=== PATIENT | male | born 1960 | race Caucasian/White ===

== ENCOUNTER → 2019-06-25 | Outpatient (CLI) | payer BC ==
--- NOTE | 2019-06-25 14:19 | Diagnostic Imaging Report ---
EXAMINATION: MRI of the lumbar spine without contrast HISTORY: Low back pain, lumbar radiculopathy, RA. Right foot pain. COMPARISON: None. TECHNIQUE: Sagittal T1, T2, STIR; axial T2 and proton density. FINDINGS: It is assumed that there are 5 lumbar vertebrae. Curvature/Alignment: Normal lordosis. Vertebrae: No evidence of recent fracture, infection, or neoplasm. Conus: Normal, terminating at T12-L1 Cauda equina: Unremarkable. Lower thoracic: Unremarkable. Paraspinal soft tissues: T2 hyperintense possible cyst in the left inferior kidney, comparison to prior studies if available is recommended. Degenerative changes: L1-L2: Unremarkable. L2-L3: Unremarkable. L3-L4: Minimal symmetric disc bulge without canal or foraminal stenoses. L4-L5: Minimal symmetric disc bulge and facet arthrosis without stenoses. L5-S1: Minimal symmetric disc bulge without stenosis. IMPRESSION: Minimal degenerative changes from L3-L4 to L5-S1 without disc herniations, spinal canal or foraminal stenosis. No evidence of nerve root compression. Signed by: Dr. Rylie Alvarez M.D. on 06/25/2019 2:15 PM
--- NOTE | 2019-06-25 14:27 | Diagnostic Imaging Report ---
EXAMINATION: MRI of the cervical spine without contrast HISTORY: Neck pain, cervical radiculopathy, RA. COMPARISON: None available TECHNIQUE: Sagittal T1, T2, STIR; axial T2, gradient echo. FINDINGS: Curvature: Normal lordosis. Vertebrae: No evidence of neoplasm, infection, or fracture. Foramen magnum: No mass, Chiari malformation, or basilar invagination. Spinal Cord: Normal size and signal intensity. Soft Tissues: Unremarkable. Degenerative changes: C1-C2: Unremarkable. C2-C3: Mild facet arthrosis without stenosis. C3-C4: Mild disc bulge, bilateral facet arthrosis. Moderate left foraminal stenosis. C4-C5: Asymmetric left disc osteophyte, prominent facet arthrosis minimally left. Moderately severe left foraminal stenosis. C5-C6: Small disc osteophyte formation, bilateral uncovertebral and facet arthrosis. Mild right and moderate left foraminal stenosis. C6-C7: Small disc osteophyte formation, bilateral facet arthrosis. Mild left foraminal stenosis. C7-T1: Facet arthroses without stenoses IMPRESSION: 1. Moderate to severe degenerative foraminal stenosis on the left at C3-C4, C4-C5 and C5-C6 as detailed above. 2. Mild multilevel spondylosis without significant canal stenosis. Signed by: Dr. Rylie Alvarez M.D. on 06/25/2019 2:24 PM
== END ==
LOC: MRI 11:11
PROVIDERS: ATTEND Physical Medicine & Rehabilitation Pain Medicine
DX: M54.16 Radiculopathy, lumbar region (principal); M54.12 Radiculopathy, cervical region
CPT/HCPCS: 72141; 72148

== ENCOUNTER → 2019-08-11 | Day surgery (SDC) | payer BC ==
[~2019-08-11] MED LIST: ALLOPURINOL100 MG PO; ALPRAZOLAM0.25 MG PO; ASPIR 8181 MG PO; AZELASTINE137 MCG/0.; FAMOTIDINE20 MG PO; FENTANYL CITRATE/PF 100MCG/2 ML INJ ONE; FLUTICASONE PRO16 GM; FLUVASTATIN SOD40 MG PO; IOPAMIDOL 200 MG/ML 20 ML VIAL IT ONE; IRBESARTAN-HCT1 EAC1 PO; LIDOCAINE HCL 1% 30ML-PF VIAL ONE; LIDOCAINE HCL 2% LOCAL INJ 5 ML SDV VIAL INJ ONE; METHOTREXATE2.5 MG PO; MIDAZOLAM HCL 2 MG/2 ML VIAL ONE; MITIGARE PO; PREDNISONE10 MG PO; PROPOFOL IV EMULSION 10 MG/ML 20 ML VIAL ONE; SULFASALAZINE500 MG PO; TESTOSTERO200 MG/1 M INJ; TRIAMCINOLONE ACET 40 MG/ML VIAL ONE; ULTRAM 50MG50 MG PO; VIT D2 PO; XELJANZ PO; ZOLPIDEM TARTRA10 MG PO
--- OUTSIDE RECORDS SUMMARY | 2019-08-11 06:44 | XMS REPORT | Encounter Summary ---
Author Organization Unknown Address [address] [place] [address] Phone [phone] Care Team Providers Care Blog Writer Name Role Phone Deniz Ordonez MD (Devin) 3 [phone] Du Ervin MD 82 [phone] Kana Reddy MD 105 [phone] Yaneth Patrick MD 121 [phone] Reason for Visit Essential hypertension; Insomnia; Pure hypercholesterolemia Instructions 1. Pure hypercholesterolemia high cholesterol: care instructions fluvastatin 40 mg capsule lipid panel, serum CMP, serum or plasma 2. Insomnia zolpidem ER 12.5 mg tablet,extended release,multiphase 3. Essential hypertension irbesartan 300 mg-hydrochlorothiazide 12.5 mg tablet 4. Allergic rhinitis azelastine 137 mcg (0.1 %) nasal spray aerosol fluticasone propionate 50 mcg/actuation nasal spray,suspension 5. Anxiety alprazolam 0.25 mg tablet 6. Polyarthropathy tramadol 50 mg tablet 7. Body mass index 30+ - obesity body mass index: care instructions learning about healthy weight 8. Non-alcoholic fatty liver Discussion Note: None recorded. Plan of Care Reminders Provider Appointments Est Patient on or around 07/08/2019 Deniz Ordonez MD Lab Lipid Panel, Serum 07/01/2019 [facility] CMP, Serum or Plasma 07/01/2019 [facility] Referral None recorded. Procedures None recorded. Surgeries None recorded. Imaging None recorded. Medications Name Start Date alprazolam 0.25 mg tablet TAKE ONE TABLET BY MOUTH DAILY NEEDED aspirin 81 mg tablet,delayed release Take 1 tablet every day by oral route. azelastine 137 mcg (0.1 %) nasal spray aerosol Gray 2 sprays twice a day by intranasal route. famotidine 20 mg tablet Take 1 tablet twice a day by oral route. fluticasone propionate 50 mcg/actuation nasal spray,suspension USE ONE SPRAY EACH NOSTRIL ONE TIME DAILY fluvastatin 40 mg capsule TAKE ONE CAPSULE BY MOUTH ONE TIME DAILY irbesartan 300 mg-hydrochlorothiazide 12.5 mg tablet Take 1 tablet every day by oral route. methotrexate sodium 2.5 mg tablet Take 4 tablets every day by oral route for 84 days. omeprazole 20 mg capsule,delayed release Take 1 capsule every day by oral route. prednisone 10 mg tablet Take 1 tablet every day by oral route as needed for 50 days. sulfasalazine 500 mg tablet,delayed release Take 1 tablet every day by oral route for 90 days. testosterone cypionate 200 mg/mL intramuscular oil INJECT 1 ML IINTRAMUSCULARLY EVERY 3 WEEKS tramadol 50 mg tablet Take 1 tablet every 6-8 hours by oral route as needed. Vitamin D2 50,000 unit capsule Take 1 capsule every week by oral route for 84 days. Xeljanz XR 11 mg tablet,extended release Take 1 tablet every day by oral route for 30 days. zolpidem ER 12.5 mg tablet,extended release,multiphase TAKE ONE TABLET BY MOUTH DAILY NEEDED Medications Administered None recorded. Vitals Height Weight BMI Blood Pressure 5 ft 10 in 231.4 lbs 33.2 kg/m2 130/92 mm[Hg] Lab Results None recorded. 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 History Vitamin D Deficiency Active 10/28/2014 History Pure Hypercholesterolemia Active 10/28/2014 History Essential Hypertension Active 10/28/2014 History Gastroesophageal Reflux Disease Active 10/28/2014 History Diaphragmatic Hernia Active 10/28/2014 History Diverticular Disease of Colon Active 10/28/2014 History Polyarthropathy Active 11/14/2014 History Disorder of Bone and Articular Cartilage Active 02/18/2015 History Non-alcoholic Fatty Liver Active 05/22/2015 History Male Hypogonadism Active 06/12/2018 Anxiety Active 06/12/2018 Insomnia Active 06/12/2018 Procedures Date Name Performed by 11/10/2011 Colonoscopy Information not available 11/10/1979 ENT Surgery (Ear, Nose, Throat) Information not available Vasectomy Information not available Tonsillectomy Information not available Vaccine List Vaccine Type influenza, injectable, quadrivalent 08/10/2017 08/14/2018 influenza, seasonal, injectable 09/14/2015 pneumococcal conjugate PCV 13 11/04/20170.5 mL Tdap 08/30/2008 VZIG 12/01/2013 Social History Tobacco Smoking Status Never Smoker Past Encounters 07/01/2019 Pure Hypercholesterolemia; Insomnia; Essential Hypertension; Allergic Rhinitis; Anxiety; Polyarthropathy; Body Mass Index 30+ - Obesity; Non-alcoholic Fatty Liver Deniz Ordonez MD: [id number] [facility], [address], [place] [address], Ph. 06/09/2019 Deniz Ordonez MD: [id number] [facility], [address], [place] [address], Ph. History of Present Illness Note:Here for follow up on chronic conditions and for refills on medications. Doing well.<div>
</div><div>Had recent Echo that was normal except impaired relaxation. Concerned since he helped daughter move in to school and kicked his butt. Having bad flare up of RA since then and having trouble. On Xeljanz as of recently. </div><div>
</div><div>Had recent EMG and recommend L-spine MRI which was done - results pending. Also bilateral carpal tunnel syndrome.</div> Review of Systems Comprehensive General Adult ROS, Brief Endocrinology ROS, Comprehensive Adult Problem ROS Reported By: Patient Constitutional: Constitutional: no fever, no significant weight gain, no significant weight loss Eyes: Eyes: no vision change. Eyes: no eye pain Cardiovascular: Cardiovascular: no chest pain, no palpitations, no lightheadedness. Cardiovascular: normal heart rate Respiratory: Respiratory: no cough, no shortness of breath Musculoskeletal: Musculoskeletal: no muscle aches, no swelling in the extremities, arthralgias/joint pain Neurologic: Neurologic: no loss of consciousness, no dizziness, no headaches Psychiatric: Psych: sleep disturbances, anxiety Endocrine: Endocrine: no fatigue Physical Exam General Adult Exam (male) Reported By: Patient Constitutional: Level of Distress: NAD. Ambulation: ambulating normally Psychiatric: Mental Status: active and alert Lungs: Respiratory effort: no dyspnea. Auscultation: breath sounds normal, no wheezing, no rales/crackles, no rhonchi Cardiovascular: Heart Auscultation: RRR, normal S1, normal S2, no murmurs. Neck vessels: no carotid bruits. Pulses including femoral / pedal: normal throughout Musculoskeletal:: Extremities: no edema Neurologic: Gait and Station: normal gait Skin: Inspection and palpation: no rash
--- OUTSIDE RECORDS SUMMARY | 2019-08-11 06:44 | XMS REPORT ---
Author Author [facility] Address Unknown Phone Unavailable Care Team Providers Care Mortgage Loan Coordinator Name Role Phone Edgar GARDNER Unavailable Unavailable Problems This patient has no known problems. Allergies, Adverse Reactions, Alerts This patient has no known allergies or adverse reactions. Medications This patient has no known medications. Encounters Start Date/Time End Date/Time Encounter Type Admission Type Attending [facility] Care Facility Care Department Encounter ID 2019-07-03 10:33:00 2019-07-03 10:33:00 Emergency [facility] [id number] Results Test Description Test Time Test Comments Text Results Atomic Results Result Comments MRI SPINE CERVICAL WO 2019-06-25 14:14:00 [place] [address] Patient Name: PAYAM ZIEGLER MR #: [id number] : 1960 Age/Sex: 58/M Req #: [id number] Adm Physician: Ordered by: MALLIKA GARDNER MD Report #: [id number] Location: MRI Room/Bed: Procedure: [id number] MRI/MRI SPINE CERVICAL WO Exam Date: Exam Time: REPORT STATUS: Signed EXAMINATION: MRI of the cervical spine without contrast HISTORY: Neck pain, cervical radiculopathy, RA. COMPARISON: None available TECHNIQUE: Sagittal T1, T2, STIR; axial T2, gradient echo. FINDINGS: Curvature: Normal lordosis. Vertebrae: No evidence of neoplasm, infection, or fracture. Foramen magnum: No mass, Chiari malformation, or basilar invagination. Spinal Cord: Normal size and signal intensity. Soft Tissues: Unremarkable. Degenerative changes: C1-C2: Unremarkable. C2-C3: Mild facet arthrosis without stenosis. C3-C4: Mild disc bulge, bilateral facet arthrosis. Moderate left foraminal stenosis. C4-C5: Asymmetric left disc osteophyte, prominent facet arthrosis minimally left. Moderately severe left foraminal stenosis. C5-C6: Small disc osteophyte formation, bilateral uncovertebral and facet arthrosis. Mild right and moderate left foraminal stenosis. C6-C7: Small disc osteophyte formation, bilateral facet arthrosis. Mild left foraminal stenosis. C7-T1: Facet arthroses without stenoses IMPRESSION: 1. Moderate to severe degenerative foraminal stenosis on the left at C3-C4, C4-C5 and C5-C6 as detailed above. 2. Mild multilevel spondylosis without significant canal stenosis. Signed by: Dr. Fernando Rai M.D. on 06/25/2019 2:24 PM Dictated By: FERNANDO RAI MD 1424 Transcribed By: ANIRUDH on 06/25/19 1424 COPY TO: MALLIKA GARDNER MD MRI SPINE LUMBAR WO 2019-06-25 14:11:00 [place] [address] Patient Name: PAYAM ZIEGLER MR #: [id number] : 1960 Age/Sex: 58/M Req #: [id number] [facility] Physician: Ordered by: MALLIKA GARDNER MD Report #: [id number] Location: MRI Room/Bed: Procedure: MRI/MRI SPINE LUMBAR WO Exam Date: Exam Time: REPORT STATUS: Signed EXAMINATION: MRI of the lumbar spine without contrast HISTORY: Low back pain, lumbar radiculopathy, RA. Right foot pain. COMPARISON: None. TECHNIQUE: Sagittal T1, T2, STIR; axial T2 and proton density. FINDINGS: It is assumed that there are 5 lumbar vertebrae. Curvature/Alignment: Normal lordosis. Vertebrae: No evidence of recent fracture, infection, or neoplasm. Conus: Normal, terminating at T12-L1 Cauda equina: Unremarkable. Lower thoracic: Unremarkable. Paraspinal soft tissues: T2 hyperintense possible cyst in the left inferior kidney, comparison to prior studies if available is recommended. Degenerative changes: L1-L2: Unremarkable. L2-L3: Unremarkable. L3-L4: Minimal symmetric disc bulge without canal or foraminal stenoses. L4-L5: Minimal symmetric disc bulge and facet arthrosis without stenoses. L5-S1: Minimal symmetric disc bulge without stenosis. IMPRESSION: Minimal degenerative changes from L3-L4 to L5-S1 without disc herniations, spinal canal or foraminal stenosis. No evidence of nerve root compression. Signed by: Dr. Fernando Rai M.D. on 06/25/2019 2:15 PM Dictated By: FERNANDO RAI MD 1411 Transcribed By: ANIRUDH on 06/25/191414 COPY TO: MALLIKA GARDNER MD
[2019-08-11 09:25] VITALS: BP 111/72
== END | disposition home or self-care (01) ==
LOC: OR 06:39
PROVIDERS: ATTEND Physical Medicine & Rehabilitation Pain Medicine
DX: M47.892 Other spondylosis, cervical region (principal); M25.511 Pain in right shoulder; M06.9 Rheumatoid arthritis, unspecified; I10 Essential (primary) hypertension; M54.16 Radiculopathy, lumbar region; G56.03 Carpal tunnel syndrome, bilateral upper limbs; Z88.0 Allergy status to penicillin; Z88.8 Allergy status to other drugs, medicaments and biological substances
CPT/HCPCS: 64490; 64491; 64492; 77003; J2001 ×2; J2250; J2704; J3010; J3301; Q9967